=== PATIENT | female | born 1985 | race African-American/Black ===

== ENCOUNTER 2024-04-22 16:03 | Emergency (ER) | payer MEDICAID ==
[~2024-04-22] VITALS: Ht 182.9 cm; Wt 85.0 kg
[~2024-04-22 16:03] MED LIST: PREN-134 PO
[2024-04-22 16:08] VITALS: O2SAT 100
[2024-04-22] MEDS: MORPHINE SULFATE 4 MG/ML INJ (FOR IV/IM USE) IV STA (17:19)
[2024-04-22] MEDS: ONDANSETRON HCL 4MG/2ML INJ IV STA (17:19)
[2024-04-22] MEDS: METOCLOPRAMIDE HCL 10MG/2ML VIAL IV STA (17:19)
[2024-04-22] MEDS: MAGNESIUM/ALUMINUM HYDROXIDE/SIMETHICONE 30ML UDC PO ONE (17:20)
[2024-04-22] MEDS: SODIUM CHLORIDE 0.9% 1,000 ML IV ONE ×2 (17:20→17:31)
[2024-04-22] MEDS: FAMOTIDINE 20MG/2ML VIAL IV ONE (17:31)
[2024-04-22] MEDS: KETOROLAC 30MG/ML VIAL IV STA (17:31)
[2024-04-22 17:38] LABS: BASOPHILS % 0.4 % (0.0-2.0); CHLORIDE 115 mEq/L (98-107); EOSINOPHILS % 0.1 % (0.0-5.0); HEMATOCRIT. 40.6 % (36.0-48.0); HEMOGLOBIN. 12.9 g/dL (12.0-16.0); LYMPHOCYTES % 19.1 % (20.0-50.0); MEAN CORPUSCULAR HEMOGLOBIN 29.1 pg (28.0-32.0); MEAN CORPUSCULAR HGB CONC 31.9 g/dL (31.0-37.0); MEAN CORPUSCULAR VOLUME 91.3 fL (81.0-99.0); MEAN PLATELET VOLUME 10.8 fl (7.4-10.4); MONOCYTES % 3.2 % (2.0-8.0); NEUTROPHILS % 77.2 % (40.0-76.0); PLATELET 213 x1000/uL (130-400); POTASSIUM 3.1 mEq/L (3.5-5.1); RED BLOOD CELL COUNT 4.45 mill/uL (4.2-5.4); SODIUM 143 mEq/L (136-145); WHITE BLOOD COUNT 6.3 x1000/uL (4.5-11.0)
[2024-04-22 17:40] LABS: CALCIUM 7.6 mg/dL (8.7-10.4); CARBON DIOXIDE 18 mEq/L (21-32)
[2024-04-22 17:44] LABS: HCG SCREEN NEGATIVE
[2024-04-22 17:45] LABS: CREATININE 0.6 mg/dL (0.6-1.0); GLUCOSE 115 mg/dL (70-105)
[2024-04-22 17:47] LABS: ALANINE AMINOTRANSFERASE 11 IU/L (10-49); ALBUMIN 3.7 g/dL (3.2-4.8); ASPARTATE AMINOTRANSFERASE 16 IU/L (<34); BILIRUBIN DIRECT 0.2 mg/dL (<=3.0); BILIRUBIN TOTAL 0.8 mg/dL (0.1-1.0); PROTEIN TOTAL 6.2 g/dL (6.0-8.3)
[2024-04-22 17:48] LABS: UREA NITROGEN BLOOD < 5 mg/dL (9-23)
[2024-04-22 18:21] LABS: INR 1.1
[2024-04-22] MEDS ORDERED: DICY-18 MT (19:16)
[2024-04-22] MEDS ORDERED: TOPUD PO (19:16)
[2024-04-22] MEDS ORDERED: FAMO20TA8 MT (19:16)
[2024-04-22] MEDS ORDERED: MAG-55 MT (19:16)
[2024-04-22 23:00] VITALS: BP 162/81; PULSE 61; RESP 20; TEMP 36.78072; O2SAT 100
== END 2024-04-22 23:02 | disposition home or self-care (01) ==
LOC: ER 16:03
DX: R10.9 Unspecified abdominal pain (principal); R11.2 Nausea with vomiting, unspecified; Z79.899 Other long term (current) drug therapy
CPT/HCPCS: 80076; 80048; 80320; 84703; 83690; 85025; 85610; 36415; 96361; 96374; 96375; 99285; J3490; J1885; J2765; J2405; J2270; J7030; Z7610 ×2; G0480